=== PATIENT | female | born 1990 | race Caucasian/White ===

== ENCOUNTER 2020-09-24 17:15 | Emergency (ER) | payer OTHER, SELFPAY ==
--- NOTE | 2020-09-24 18:49 | ED.FEMALEGU ---
HPI - Female Genitourinary General Chief complaint: Urogenital-Female Stated complaint: ?Uti Time Seen by Provider: 09/24/20 17:28 Source: patient Mode of arrival: ambulatory Limitations: no limitations History of Present Illness HPI Narrative: 30 y/o female presents to the ER with 2 weeks of white vaginal discharge with a foul odor as well as new onset burning with urination the last week or so. She last had unprotected sex 4 months ago and is not concerned about a STI. She has a history of BV and feels like it may be that. She also has a history of UTI. She denies any fever, chills, N/V/D or abdominal pain. She reports her LMP was 3 weeks ago. MD elicited complaint: dysuria and vaginal discharge Onset (ago): week(s) Location of symptoms: vaginal Severity: moderate Female Urogenital Radiation: Non-Radiating Severity scale (1-10): 4 Quality of pain: burning Consistency: intermittent Vaginal discharge: white, creamy and vaginal odor Vaginal bleeding: none Urinary symptoms: Dysuria Exacerbating factors: urination Relieving factors: none Associated symptoms: denies other symptoms Treatment prior to arrival: none Sexual activity: No (not in 4 months ) Patient : No Related Data Previous Rx's Medication Instructions Recorded cefuroxime axetil 250 mg PO BID #6 tab 09/24/20 metronidazole 500 mg PO BID #14 tab 09/24/20 Allergies Allergy/AdvReac Type Severity Reaction Status Date / Time No Known Allergies Allergy Verified 09/24/20 19:30 [No Known Allergies*] Review of Systems Review of Systems: Constitutional: No Fever, No Chills ENT/Mouth: No sore throat Cardiovascular: No Chest Pain, No SOB Respiratory: No Cough, No Sputum, No Wheezing, No dyspnea Gastrointestinal: No Nausea, No Vomiting, No Diarrhea, No abdominal Pain Genitourinary: + Dysuria, No Urinary Frequency, No Hematuria, +vaginal discharge Skin: No Skin Lesions, No rash Neuro: No Dizziness, No Headache Heme/Lymph: No Lymphadenopathy PMFSH Past Medical History Attestation statement: The following information was validated with the patient. Medical History Patient denies medical problems Social History Social History Advance Directives: No Advance Directives Information Provided: No Patient : No Physical Exam Vital Signs: Vital Signs: Last Vital Signs Temp 98.7 F 09/24/20 19:30 Pulse 89 09/24/20 19:30 Resp 18 09/24/20 19:30 BP 118/83 09/24/20 19:30 Pulse Ox 97 09/24/20 19:30 Body Mass Index 32.0 Appearance: Alert. Oriented X3. No acute distress. ENT: Pharynx normal. Neck: Normal inspection. Neck supple. CVS: Normal heart rate and rhythm. Pulses normal. Respiratory: No respiratory distress. Abdomen: Soft and nontender. +BS x4 Pelvic: normal external genitalia. moderate amount of creamy white vaginal discharge, normal appearing cervix, os is closed, no bleeding. Skin: Skin warm and dry. Normal skin color. Normal skin turgor. No rashes. Extremities: No lower extremity edema. Neuro: Oriented X 3. Nonfocal Course Course Course Narrative: 30 y/o female presenting with foul smeeling white vaginal discharge and dysuria. Concern for BV and UTI. Will check UA, Upreg, CT/NG, BV panel and trich. We discussed empiric treatment for STIs but she is not concerned about this. She is requesting we check for it but she would like to hold off on treatment at this time. Reevaluation(s) Reevaluation #1: Pelvic exam is consistent with BV. No evidence of PID. UA is also positive for UTI. Will treat for both - 1st doses given now. Will call if CT/NG is positive. She is stable for discharge home with PO abx and outpatient follow up. MDM - Female Genitourinary Lab Data Labs: Lab Results 09/24/20 09/24/20 Range/Units 20:19 20:19 Urine Color YELLOW Urine Appearance CLEAR Urine pH 6.0 (5.0-8.0) Ur Specific [place] <= 1.005 (1.005-1.025) Urine Protein NEG (NEG-TRACE) MG/DL Urine Glucose (UA) NEG (NEG) MG/DL Urine Ketones 5 (NEG) MG/DL Urine Blood 2+ H (NEG) Urine Nitrite NEG (NEG) Ur Leukocyte Esterase 1+ H (NEG) Urine RBC 10-14 H (0) /HPF Urine WBC 5-9 H (0-4) /HPF Ur Squamous Epith Cells 2+ /LPF Urine Bacteria 1+ /LPF Urine Test NEGATIVE (NEGATIVE) Critical Care Time Critical Care Time Critical Care Time: No Discharge Plan Discharge Clinical Impression: Bacterial vaginosis Urinary tract infection Qualifiers: Urinary tract infection type: acute cystitis Hematuria presence: with hematuria Qualified Code(s): N30.01 - Acute cystitis with hematuria Patient Disposition: Home, Self-Care Instructions: Bacterial Vaginosis (ED), Urinary Tract Infection in Women (ED) Additional Instructions: You are being treated for probable bacterial vaginosis as well as a UTI. Take the prescribed antibiotics as directed, starting tomorrow morning. Recommend taking a probiotic to help prevent yeast infection while you are on these medications. No sexual activity until all of you symptoms are completely resolved. You were tested for gonorrhea and chlamydia - we will call you if positive. Follow up with your doctor as needed. Prescriptions: New metronidazole 500 mg tablet 500 mg PO BID Qty: 14 RF: 0 cefuroxime axetil 250 mg tablet 250 mg PO BID Qty: 6 RF: 0 Interventions: ED Discharge Assessment Last Done: 09/24/20 21:28 Discharge Date/Time: 09/24/20 21:29
[2020-09-24 19:30] VITALS: BP 118/83; PULSE 89; RESP 18; TEMP 37.1; O2SAT 97; BMI 32.0
[2020-09-24 20:49] LABS: Glucose Urine UA NEG (NEG); Leukocyte Esterase Urine 1+ (NEG); Nitrite Urine NEG (NEG); Specific Gravity - Urine <= 1.005 (1.005-1.025); UACC Culture Trigger YES; Urine Blood 2+ (NEG); Urine Ketones 5 MG/DL (NEG); Urine Protein NEG (NEG-TRACE)
[2020-09-24 20:51] LABS: Appearance Urine CLEAR; Color Urine YELLOW
[2020-09-24 20:52] LABS: UPreg QC Valid YES; Urine Pregnancy NEGATIVE (NEGATIVE)
[2020-09-24 20:58] LABS: Bacteria Urine 1+ /LPF; Squamous Epithelial Cell Urine 2+ /LPF
[2020-09-24] MEDS: metroNIDAZOLE 500 MG TABLET PO (21:21)
[2020-09-25 02:31] LABS: CT PCR NOT DETECTED (Not Detect.); NG PCR NOT DETECTED (Not Detect.)
[2020-09-25 09:53] LABS: BV Int Neg Control Negative (Negative); BV Int Pos Control Positive (Positive)
== END 2020-09-24 21:29 | disposition home or self-care (01) ==
PROVIDERS: Physician Assistant; Physician Assistant Medical; Emergency Provider Internal Medicine
DX: N30.01 Acute cystitis with hematuria (principal); N76.0 Acute vaginitis; B96.89 Other specified bacterial agents as the cause of diseases classified elsewhere
CPT/HCPCS: 81001; 81003; 81025; 87086; 87480; 87491; 87510; 87591; 87660; 99282; 99283